=== PATIENT | female | born 2000 | race Caucasian/White ===

== ENCOUNTER 2018-04-29 14:00 | Emergency (ER) | payer OTHER ==
[~2018-04-29] VITALS: Ht 162.6 cm; Wt 102.1 kg
[~2018-04-29 14:00] MED LIST: CONCERTA54 MG/BOTT PO
== END 2018-04-29 18:59 | disposition home or self-care (01) ==
LOC: ER 14:00
DX: N83.291 Other ovarian cyst, right side (principal)